=== PATIENT | male | born 1955 | race Caucasian/White ===

== ENCOUNTER 2018-04-22 08:16 | Day surgery (SDC) | payer BC ==
[~2018-04-22] VITALS: Ht 177.8 cm; Wt 118.2 kg
[~2018-04-22 08:16] MED LIST: ASPI81CH PO; DEXILANT60 MG PO; Hair, Skin & N1 EACH PO; OLME20 PO; SILD25T PO
--- NOTE | 2018-04-22 09:34 | NUR ---
04/22/18 0934 Bonnie Howard V PT RESTING IN BED, SIDE RAILS IN PLACE, CALL LIGHT WITHIN REACH, VSS. PT TEACHING COMPLETED. PT DENIES PAIN, NAUSEA, AND QUESTIONS AT THIS TIME.
--- NOTE | 2018-04-22 13:19 | NUR ---
04/22/18 1319 Megan Herrera PT VERY SLOW TO WAKE UP, VSS. DRESSING CDI, CANNOT ASSESS PAIN AT THIS TIME DUE TO PT SLEEPING.
== END 2018-04-22 14:20 | disposition home or self-care (01) ==
LOC: ORSCSDS 08:16
PROVIDERS: Surgery
PROC: 0YU60JZ Supplement Left Inguinal Region with Synthetic Substitute, Open Approach (ICD-10-PCS; principal; 2018-04-22 10:00)
DX: K40.90 Unilateral inguinal hernia, without obstruction or gangrene, not specified as recurrent (principal); I10 Essential (primary) hypertension; G47.33 Obstructive sleep apnea (adult) (pediatric); K21.9 Gastro-esophageal reflux disease without esophagitis; E66.01 Morbid (severe) obesity due to excess calories; Z68.38 Body mass index [BMI] 38.0-38.9, adult; Z79.899 Other long term (current) drug therapy
CPT/HCPCS: 88305; C1781; J0690; J1100; J2250; J2405; J3010; J7120

== ENCOUNTER 2021-09-29 06:09 | Day surgery (SDC) | payer MEDICARE, OTHER ==
[~2021-09-29] VITALS: Ht 177.8 cm; Wt 127.3 kg
[~2021-09-29 06:09] MED LIST changes: +Azor 5-40 MG T1 EACH PO
--- NOTE | 2021-09-29 08:50 | NUR ---
PT TO RECOVERY ROOM POST PROCEDURE. PT AWAKE AND CONVERSING APPROPRIATELY; DENIES PAIN POST PROCEDURE. MONITOR SR 60'S, B/P 148/83, SPO2 97% RA, AFEBRILE. R RADIAL SITE NO SWELLING/HEMATOMA, TR BAND IN PLACE; RUE POSITIVE PLEUTH POST TR BAND PLACEMENT.
--- NOTE | 2021-09-29 09:05 | NUR ---
DR POE DISCUSSED PROCEDURE RESULTS WITH PT AND .
[2021-09-29] MEDS ORDERED: ATOR40TA PO (09:09)
--- NOTE | 2021-09-29 09:40 | NUR ---
PT AMB TO BATHROOM, GAIT STEADY; SITE UNCHANGED WITH ACTIVITY.
--- NOTE | 2021-09-29 11:50 | NUR ---
PT AMB TO THE BATHROOM, GAIT STEADY, SITE UNCHANGED. PT DRESSED SELF WITHOUT ISSUE, SITE UNCHANGED; TR BAND REMOVED, CLOTH DOT AND WRIST IMMOBILIZER PLACED, IV REMOVED-CANNULA INTACT.
--- NOTE | 2021-09-29 12:03 | NUR ---
PT RECEIVED DISCHARGE INSTRUCTIONS, MED LIST AND AFTER CARE INSTRUCTIONS; VERBALIZED GOOD UNDERSTANDING. PT LEFT FACILITY VIA W/C, CONDITION STABLE.
== END 2021-09-29 12:03 | disposition home or self-care (01) ==
LOC: MHTC 06:09
DX: I25.10 Atherosclerotic heart disease of native coronary artery without angina pectoris (principal); I10 Essential (primary) hypertension; R94.31 Abnormal electrocardiogram [ECG] [EKG]; E66.01 Morbid (severe) obesity due to excess calories; K21.9 Gastro-esophageal reflux disease without esophagitis; I25.2 Old myocardial infarction; G47.33 Obstructive sleep apnea (adult) (pediatric); Z87.891 Personal history of nicotine dependence; Z68.41 Body mass index [BMI] 40.0-44.9, adult
CPT/HCPCS: 76937; 85347; 93454; 93571; 99152; 99153; C1769; C1887; C1894; J1644; J2250; J3010; J7030; J7040; Q9967